=== PATIENT | female | born 1995 | race African-American/Black ===

== ENCOUNTER 2018-03-06 22:09 | Emergency (ER) | payer BC, OTHER ==
[2018-03-06 22:20] VITALS: BP 132/83; PULSE 82; TEMP 97.8; BMI 26.5
[2018-03-06] MEDS ORDERED: MAG HYDROX/AL HYDROX/SIMETH 30 ML UNIT-DOSE CUP PO ONE (23:43)
[2018-03-06] MEDS ORDERED: ONDANSETRON 4 MG TABLET PO ONE (23:43)
--- NOTE | 2018-03-06 23:43 | PDOC ---
History of Present Illness - General Chief Complaint: Pain Stated Complaint: ABDOMINAL PAIN Time Seen by Provider: 03/06/18 23:37 History Source: Patient - History of Present Illness Initial Comments: 03/06/18 23:38 22 year old female with upper abdominal pain x 2 pm and vomited 1x today. reports drinking a smoothie this am unsure if that is the cause of the pain. denies fever/ chill, flank pain, urinary symptoms, vaginal bleeding/ discharge. patient reports slight nausea now. no pmhx: LMP: 02/15/2018 03/06/18 23:40 Past History - Past Medical History Allergies/Adverse Reactions: Allergies Allergy/AdvReac Type Severity Reaction Status Date / Time No Known Allergies Allergy Verified 03/06/18 22:12 Home Medications: Ambulatory Orders NK [No Known Home Medication] 03/07/18 Anemia: No Asthma: No Cancer: No Cardiac Disorders: No CVA: No COPD: No CHF: No DVT: No Dementia: No Diabetes: No Dialysis: No GI Disorders: No Disorders: No HTN: No Hypercholesterolemia: No Kidney Stones: No Liver Disease: No Psychiatric Problems: No Seizures: No Thyroid Disease: No Lung CA: No - Surgical History Abdominal Surgery: No Appendectomy: No Cardiac Surgery: No Cholecystectomy: No Gastric Stapling: No GI Surgery: No Lung Surgery: No Neurologic Surgery: No Orthopedic Surgery: No - Suicide/Smoking/Psychosocial Hx Smoking Status: No Smoking History: Never smoked Number of Cigarettes Smoked Daily: 0 Review of Systems - Review of Systems Able to Perform ROS?: Yes Is the patient limited [place] proficient: No Constitutional: No: Symptoms Reported, See HPI, Chills, Diaphoresis, Fever, Loss of Appetite, Malaise, Night Sweats, Weakness, Weight Stable, Unintentional Wgt. Loss, Unexplained wgt Loss, Other ABD/GI: Yes: Nausea, Vomiting, Abdominal cramping (upper abdominal pain ) : No: Symptoms Reported, See HPI, Burning, Dysuria, Discharge, Frequency, Flank Pain, Hematuria, Incontinence, Pain, Urgency, Testicular Mass, Testicular Swelling, Lesions, Testicular Pain, Other *Physical Exam - Vital Signs Last Vital Signs Temp Pulse Resp BP Pulse Ox 97.8 F 82 18 132/83 96 03/06/18 22:13 03/06/18 22:13 03/06/18 22:13 03/06/18 22:13 03/06/18 22:13 - Physical Exam General Appearance: Yes: Appropriately Dressed Moderate Sedation - Procedure Monitoring Vital Signs: Procedure Monitoring Vital Signs Temperature 97.8 F 03/06/18 22:13 Pulse Rate 82 03/06/18 22:13 Respiratory Rate 18 03/06/18 22:13 Blood Pressure 132/83 03/06/18 22:13 O2 Sat by Pulse Oximetry (%) 96 03/06/18 22:13 Medical Decision Making - Medical Decision Making 03/07/18 00:30 tolerated po. reports feeling better. will d/c home *DC/Admit/Observation/Transfer Diagnosis at time of Disposition: Abdominal pain Qualifiers: Abdominal location: upper abdomen, unspecified Qualified Code(s): R10.10 - Upper abdominal pain, unspecified Gastritis Qualifiers: Gastritis type: unspecified gastritis Chronicity: unspecified Gastritis bleeding: without bleeding Qualified Code(s): K29.70 - Gastritis, unspecified, without bleeding - Discharge Dispostion Disposition: HOME - Referrals Referrals: Alessandro Mckeon MD [Primary Care Provider] - Call tomorrow - Patient Instructions Printed Discharge Instructions: [place] Diet Additional Instructions: drink plenty of fluids take maalox as prescribed. follow up with your doctor as soon as possible. Additional Instructions: * Please call your personal physician to report your Emergency Department visit and to report your progress, if any. * If there is no improvement in symptoms in 2 days call your physician. * Return to the Emergency Department for any worsening symptoms. - Post Discharge Activity Forms/Work/School Notes: Back to Work
[2018-03-06 23:56] LABS: URINE APPEARANCE SLCLOUDY; URINE BILIRUBIN NEGATIVE (<2.0 mg/dL); URINE COLOR YELLOW; URINE GLUCOSE (UA) NEGATIVE (NEGATIVE); URINE KETONE 1+ (NEGATIVE); URINE LEUK ESTERASE TRACE (NEGATIVE); URINE NITRITE NEGATIVE (NEGATIVE); URINE PROTEIN NEGATIVE (NEGATIVE); URINE UROBILINOGEN NEGATIVE mg/dL (0.2-1.0)
[2018-03-06 23:57] LABS: HCG,QUALITATIVE URINE Negative
[2018-03-07] MEDS ORDERED: MAG HYDROX/AL HYDROX/SIMETH 30 ML UNIT-DOSE CUP ONE
[2018-03-07] MEDS ORDERED: ONDANSETRON *ODT* 4 MG TABLET ONE
[2018-03-07 00:13] LABS: EPI CELLS RARE /HPF (FEW); URINE BACTERIA RARE /hpf (NONE SEEN); URINE HYALINE CAST 1 /lpf; URINE MUCUS RARE
== END 2018-03-07 00:40 | disposition home or self-care (01) ==
LOC: JER 22:09
DX: K29.70 Gastritis, unspecified, without bleeding (principal); R10.10 Upper abdominal pain, unspecified
CPT/HCPCS: 81003; 81015; 84703; 99281-25